=== PATIENT | male | born 1995 | race African-American/Black ===

== ENCOUNTER 2020-01-29 21:05 | Emergency (ER) | payer SELFPAY ==
[~2020-01-29] VITALS: Ht 188 cm; Wt 95.5 kg
[2020-01-29 21:09] VITALS: BP 104/44
== END 2020-01-29 23:12 | disposition left against medical advice (07) ==
LOC: EMS 21:05
DX: R50.9 Fever, unspecified (principal); Z53.21 Procedure and treatment not carried out due to patient leaving prior to being seen by health care provider